=== PATIENT | female | born 1995 | race Caucasian/White ===

== ENCOUNTER 2020-05-14 04:00 | Inpatient (IN) ==
[2020-05-14] MEDS ORDERED: Famotidine 20 MG/2 ML VIAL IVP PRN (04:07)
[2020-05-14] MEDS ORDERED: Lidocaine 1% 20 ML MDV INFILT PRN (04:07)
[2020-05-14] MEDS ORDERED: *HR* FentaNYL (PF) 100 MCG/2 ML VIAL IVP PRN (04:07)
[2020-05-14] MEDS ORDERED: Ondansetron 4 MG/2 ML VIAL IVP PRN ×3 (04:07→13:43)
[2020-05-14] MEDS ORDERED: Metoclopramide 10 MG/2 ML VIAL IVP PRN ×2 (04:07→13:43)
[2020-05-14] MEDS ORDERED: Naloxone 0.4 MG/ML INJ IVP PRN (04:07)
[2020-05-14] MEDS ORDERED: miSOPROStoL 25 MCG TABLET PO PRN (04:09)
[2020-05-14] MEDS ORDERED: Ringers Solution, Lactated 1,000 ML IVC SCH (04:15)
[2020-05-14 04:49] LABS: Basophils % 0.2 %; Eosinophils % 0.5 %; Hemoglobin 13.2 g/dL (11.5-15.4); Immature Granulocytes % 0.9 % (0-4); Lymphocytes % 22.9 %; Mean Corpuscular Hemoglobin 28.3 pg (28.0-33.3); Mean Corpuscular Volume 85.7 fL (83.0-100.0); Mean Platelet Volume 12.6 fL (9.4-12.4); Monocytes # 0.7 K/mcL (0.0-1.3); Monocytes % 7.3 %; Nucleated Red Blood Cells 0.2 /100 WBC (0); Platelet Count 169 K/mcL (140-400); Red Blood Count 4.67 M/mcL (3.82-4.97); Red Cell Distribution Width 13.6 % (11.5-14.5); Segmented Neutrophils % 68.2 %; White Blood Count 8.9 K/mcL (4.3-11.1)
[2020-05-14 04:50] LABS: Amphetamine Screen,Urine Negative ng/mL (Cutoff=1000); Barbiturate Screen,Urine Negative ng/mL (Cutoff=200); Benzodiazepines Screen,Urine Negative ng/mL (Cutoff=200); Cannabinoid Screen,Urine Negative ng/mL (Cutoff = 50); Cocaine Screen,Urine Negative ng/mL (Cutoff= 300); Opiate Screen,Urine Negative ng/mL (Cutoff=300); Phencyclidine Screen,Urine Negative ng/mL (Cutoff=25)
[2020-05-14] MEDS ORDERED: EPHEDrine 50 MG/ML VIAL IVP PRN (05:58)
[2020-05-14] MEDS ORDERED: Epidural Premix (fent/bupiv) 110 ML EP SCH (06:00)
[2020-05-14] MEDS ORDERED: *HR* FentaNYL (PF) 100 MCG/2 ML VIAL ONE (08:34)
[2020-05-14] MEDS ORDERED: *HR* Morphine Sulfate/PF 10 MG/10 ML AMPUL ONE (08:34)
[2020-05-14] MEDS ORDERED: *HR* HYDROmorphone (PF) 1 MG/ML SYRINGE IVP PRN (09:21)
[2020-05-14] MEDS ORDERED: Acetaminophen IV 1,000 MG/100 ML BAG IVPB ONE (09:21)
[2020-05-14] MEDS ORDERED: ceFAZolin 3,000 MG in 0.9 % Sodium Chloride 100 ML IVPB ONE (09:47)
[2020-05-14] MEDS ORDERED: CeFAZolin 2,000 MG/50 ML BAG IVPB ONE ×2 (10:00→10:07)
[2020-05-14] MEDS ORDERED: Ringers Solution, Lactated 1,000 ML ONE (10:30)
[2020-05-14] MEDS ORDERED: EPHEDrine 50 MG/ML VIAL ONE (10:32)
[2020-05-14] MEDS ORDERED: *HR* Oxytocin 10 UNIT/ML VIAL IM ONE ×2 (10:37→10:41)
[2020-05-14] MEDS ORDERED: Sennosides 8.6 MG TABLET PO PRN (13:43)
[2020-05-14] MEDS ORDERED: Simethicone 80 MG TAB.CHEW PO PRN (13:43)
[2020-05-14] MEDS: Oxytocin 20 units/ LR 1000 mL 20 UNIT/1,000 ML BAG IVC SCH ×2 (14:06→22:41)
[2020-05-14] MEDS: metroNIDAZOLE 500 MG TABLET PO SCH ×2 (14:34→20:11)
[2020-05-14] MEDS: Ibuprofen 600 MG TABLET PO PRN ×2 (14:37→22:40)
[2020-05-14] MEDS: *HR* OxyCODONE/APAP 5/325 TABLET PO PRN ×2 (16:56→23:53)
[2020-05-14] MEDS: ceFAZolin 2,000 MG in 0.9 % Sodium Chloride 100 ML IVPB SCH (18:14)
[2020-05-15] MEDS: ceFAZolin 2,000 MG in 0.9 % Sodium Chloride 100 ML IVPB SCH ×2 (03:21→10:48)
[2020-05-15] MEDS: Ibuprofen 600 MG TABLET PO PRN ×3 (04:46→16:57)
[2020-05-15 06:37] LABS: Basophils % 0.2 %; Eosinophils % 0.3 %; Hematocrit 36.9 % (35.3-44.9); Hemoglobin 11.9 g/dL (11.5-15.4); Immature Granulocytes % 0.8 % (0-4); Lymphocytes # 1.3 K/mcL (0.6-4.6); Lymphocytes % 11.7 %; Mean Corpuscular HGB Conc 32.2 g/dL (31.6-35.5); Mean Corpuscular Hemoglobin 27.9 pg (28.0-33.3); Mean Corpuscular Volume 86.4 fL (83.0-100.0); Mean Platelet Volume 12.2 fL (9.4-12.4); Monocytes # 0.7 K/mcL (0.0-1.3); Monocytes % 6.4 %; Neutrophils # 9.1 K/mcL (1.6-8.9); Platelet Count 134 K/mcL (140-400); Red Blood Count 4.27 M/mcL (3.82-4.97); Red Cell Distribution Width 13.8 % (11.5-14.5); Segmented Neutrophils % 80.6 %; White Blood Count 11.3 K/mcL (4.3-11.1)
[2020-05-15] MEDS: Oxytocin 20 units/ LR 1000 mL 20 UNIT/1,000 ML BAG IVC SCH (06:42)
[2020-05-15] MEDS: metroNIDAZOLE 500 MG TABLET PO SCH ×2 (07:39→14:51)
[2020-05-15] MEDS: *HR* OxyCODONE/APAP 5/325 TABLET PO PRN ×2 (07:39→13:49)
[2020-05-15 07:43] VITALS: BP 118/73
[2020-05-15] MEDS ORDERED: Prenatal Vit/FA 1 EACH TABLET PO SCH (09:00)
[2020-05-15] MEDS ORDERED: Lanolin 7 G OINT...G. TP PRN (10:54)
== END 2020-05-15 17:40 | disposition home or self-care (01) | DRG 788 ==
LOC: 1NENULAB 04:01 → 1NENUOBS 13:34
PROVIDERS: ADMIT Obstetrics & Gynecology; ATTEND Obstetrics & Gynecology